=== PATIENT | female | born 2000 | race Caucasian/White ===

== ENCOUNTER 2022-06-15 02:55 | Inpatient (IN) | payer OTHER ==
[~2022-06-15] VITALS: Ht 160 cm; Wt 96.6 kg
[2022-06-15] VITALS (35 sets, daily range): BP systolic 114–151; BP diastolic 59–98
[2022-06-15] MEDS ORDERED: TERBUTALINE INJ 1 MG/ML (BRETHINE) AMP SC PRN (04:15)
[2022-06-15] MEDS ORDERED: LACTATED RINGERS 1,000 ML IV SCH (04:15)
[2022-06-15] MEDS ORDERED: MINERAL OIL 30 ML UDC TOP PRN (04:15)
[2022-06-15] MEDS ORDERED: LACTATED RINGERS 1,000 ML IV ONE (04:18)
[2022-06-15 05:04] LABS: BASOPHILS % (AUTO) 0 % (0-10); EOSINOPHILS # (AUTO) 0.1 10^3/uL (0.0-0.3); EOSINOPHILS % (AUTO) 1 % (0-10); HEMATOCRIT 36 % (35-52); LYMPHOCYTES # (AUTO) 1.9 10^3/uL (1.0-4.0); LYMPHOCYTES % (AUTO) 14 % (12-44); MEAN CORPUSCULAR HEMOGLOBIN 30 pg (25-34); MEAN CORPUSCULAR HGB CONC 33 g/dL (32-36); MEAN CORPUSCULAR VOLUME 90 fL (80-99); MEAN PLATELET VOLUME 11.1 fL (9.0-12.2); MONOCYTES % (AUTO) 7 % (0-12); NEUTROPHILS # (AUTO) 10.4 10^3/uL (1.8-7.8); NEUTROPHILS % (AUTO) 78 % (42-75); PLATELET COUNT 227 10^3/uL (130-400); WHITE BLOOD COUNT 13.4 10^3/uL (4.3-11.0)
[2022-06-15] MEDS: CATHETER FLUSH 10 ML SYR IV SCH ×2 (05:10→14:00)
[2022-06-15] MEDS: D5 LR IV SOLUTION 1,000 ML IV SCH ×2 (05:27→13:12)
--- NOTE | 2022-06-15 07:50 | History & Physical-OB ---
OB - Chief Complaint & HPI Date/Time Date of Admission: Date of Admission: Jun 15, 2022 at 04:00 Date seen by a Provider: Jun 15, 2022 Time Seen by a Provider: 08:00 Chief Complaint/History OB-Reason for Admission/Chief: Induction of Labor Hx : 1 Hx Para: 0 Hx Last Menstrual Period: 09/09/2021 Expected Date of Delivery: Jun 07, 2022 Gestational Age in Weeks: 41 Gestational Age in Days: 1 Indication for induction: post dates Admission Nurse Assessment Rev: Yes Allergies and Home Medications Allergies Coded Allergies: No Known Drug Allergies (Unverified , 06/15/22) Patient Home Medication List Home Medication List Reviewed: Yes No Active Prescriptions or Reported Meds OB - History Hx of Present Care: Yes Ultrasounds: Normal mid trimester US Obstetrical Complications: None Medical Complications: None Information Induced Hypertension: No Maternal Gestational Diabetes: No Patient Past Medical History Patient denies PMH Social History/Family History Alcohol Use: Denies Use Recreational Drug Use: No Smoking Cessation: Never smoker 2nd Hand Smoke Exposure: Yes Immunizations Influenza Vaccine Up-to-Date: No; Not Current Hepatitis A: No Hepatitis B: No Rubella: immune RPR/VDRL: Negative GBS Status: Negative HBsAG: Negative OB - Admission Exam Physical Exam Vitals: Vital Signs 06/15/22 06/15/22 04:30 07:06 Temp 37.0 Pulse 96 Resp 18 B/P (MAP) 130/75 (93) O2 Delivery Room Air HEENT: Moist Membranes Heart: Rhythm Normal Lungs: Clear Abdomen: Non tender Extremities: Normal Membranes: Intact Heart Rate: 120's Accelerations: Accelerations Present Decelerations: No Decelerations Short Term Variability: Present Cell Tester Variability: Average (6-25) Contractions on Admission: < 5 Minutes Apart Date/Time Contractions Began;: 06/14/2022 around 12:00 Frequency of Contractions: Every 4-5 minutes Duration: Last a minute Intensity: Moderate Labs Laboratory Tests Test 06/15/22 04:25 Range/Units White Blood Count 13.4 H 4.3-11.0 10^3/uL Red Blood Count 4.03 3.80-5.11 10^6/uL Hemoglobin 12.0 11.5-16.0 g/dL Hematocrit 36 35-52 % Mean Corpuscular Volume 90 80-99 fL Mean Corpuscular Hemoglobin 30 25-34 pg Mean Corpuscular Hemoglobin Concent 33 32-36 g/dL Red Cell Distribution Width 13.5 10.0-14.5 % Platelet Count 227 130-400 10^3/uL Mean Platelet Volume 11.1 9.0-12.2 fL Immature Granulocyte % (Auto) 1 % Neutrophils (%) (Auto) 78 H 42-75 % Lymphocytes (%) (Auto) 14 12-44 % Monocytes (%) (Auto) 7 0-12 % Eosinophils (%) (Auto) 1 0-10 % Basophils (%) (Auto) 0 0-10 % Neutrophils # (Auto) 10.4 H 1.8-7.8 10^3/uL Lymphocytes # (Auto) 1.9 1.0-4.0 10^3/uL Monocytes # (Auto) 1.0 0.0-1.0 10^3/uL Eosinophils # (Auto) 0.1 0.0-0.3 10^3/uL Basophils # (Auto) 0.0 0.0-0.1 10^3/uL Immature Granulocyte # (Auto) 0.1 0.0-0.1 10^3/uL OB - Assessment/Plan/Diagnosis Assessment Assessment: induction of labor Admission Dx 21yo F @ 41w1d presenting for induction of labor. Patient has not had any complications during this . Patient started feeling contractions yesterday afternoon that have gradually become more intense and closer together. She denies any vaginal blood or leaking of fluid. Plan Plan: Induction Induction Method: per Misoprostol Protocol Other Plan Patient will have cervical ripening done with misoprostol. She is zuleyma every 4-5 minute so pitocin is not needed at this time. Cervical checks will be done throughout the day to monitor progression of labor. monitoring will be done as well. Once patient is more dilated then an amniotomy will be performed. Expectant management for the rest of the day. CBC and syphillis ordered. HEATHER SEGURA Jun 15, 2022 07:50
[2022-06-15] MEDS: OXYTOCIN PRE-MIX DRIP 500 ML IV SCH ×2 (11:02→21:03)
[2022-06-15] MEDS ORDERED: ONDANSETRON 4 MG/2 ML (SDV) Z0FRAN IVP PRN (13:00)
[2022-06-15] MEDS ORDERED: ONDANSETRON 4 MG/2 ML (SDV) Z0FRAN ONE (13:03)
[2022-06-15] MEDS: fentaNYL INJ 100 MCG/2 ML AMP IVP PRN ×2 (13:05→14:54)
--- NOTE | 2022-06-15 14:56 | Labor Progress Note ---
Labor Progress Note Labor Progress Note Date Seen by Provider: Jun 15, 2022 Time Seen by Provider: 14:55 Subjective: Having more pressure and pain. Objective: / Assessment/Plan: Mckenna Reyez is a (21 /Para 1 / 0,Gestational Age (wks)41 here for active labor. CEFM/TOCO Continue pitocin augmentation Anesthesia: Natural Anticipate vaginal delivery. Vitals - Labs Vital Signs - I&O Vital Signs Date Time Temp Pulse Resp B/P (MAP) Pulse Ox O2 Delivery O2 Flow Rate FiO2 06/15/22 13:00 36.7 83 18 114/59 (77) Room Air 06/15/22 12:45 89 18 132/83 (99) Room Air 06/15/22 12:30 73 18 128/85 (99) Room Air 06/15/22 12:15 82 18 118/72 (87) Room Air 06/15/22 12:00 83 18 144/98 (113) Room Air 06/15/22 11:45 77 18 126/79 (95) Room Air 06/15/22 11:15 75 18 133/80 (97) Room Air 06/15/22 10:30 36.8 06/15/22 08:15 36.6 75 18 120/68 (85) Room Air 06/15/22 07:06 96 18 130/75 (93) Room Air 06/15/22 06:00 105 18 132/83 (99) Room Air 06/15/22 05:00 82 18 135/83 (100) Room Air 06/15/22 04:30 37.0 86 18 133/77 (95) Room Air 06/15/22 03:15 37.5 88 18 97 Room Air 06/15/22 03:15 37.5 88 18 142/81 (101) 97 Room Air I & O 06/15/22 07:00 Intake Total 1000 ml Balance 1000 ml Labs Laboratory Tests 06/15/22 04:25: White Blood Count 13.4H, Red Blood Count 4.03, Hemoglobin 12.0, Hematocrit 36, Mean Corpuscular Volume 90, Mean Corpuscular Hemoglobin 30, Mean Corpuscular Hemoglobin Concent 33, Red Cell Distribution Width 13.5, Platelet Count 227, Mean Platelet Volume 11.1, Immature Granulocyte % (Auto) 1, Neutrophils (%) (Auto) 78H, Lymphocytes (%) (Auto) 14, Monocytes (%) (Auto) 7, Eosinophils (%) (Auto) 1, Basophils (%) (Auto) 0, Neutrophils # (Auto) 10.4H, Lymphocytes # (Auto) 1.9, Monocytes # (Auto) 1.0, Eosinophils # (Auto) 0.1, Basophils # (Auto) 0.0, Immature Granulocyte # (Auto) 0.1 AMBERLY QUARLES MD Jun 15, 2022 14:56
[2022-06-15] MEDS ORDERED: LIDOCAINE 1% INJ 10 ML VIAL ONE (18:24)
[2022-06-15] MEDS ORDERED: KETOROLAC 30 MG/ML VIAL ONE (20:55)
--- NOTE | 2022-06-15 21:12 | OB Labor & Delivery Record ---
Vag Delivery Note Vag Delivery Note Date of Delivery: 06/15/22 Preoperative Diagnosis: Mckenna Reyez is a (21 /Para 1 / 0,Gestational Age (wks)41.4 here in active labor Postoperative Diagnosis: Same Surgeon: AMBERLY QUARLES MD Balloon Dipper: Mady Hernandez, MS4 Anesthesia: Natural Delivery Type: @2032 Findings: Viable Male infant, apgars 6/9, weight Lacerations: 2nd degree perineal, right labial and left mary urethral Intact placenta with 3 vessel cord. No nuchal cord, body cord or shoulder dystocia Estimated Blood Loss: 350 ml Complications: None Condition: Stable Description of Procedure: The patient is a 21 year old female who presented in active labor. She was admitted and informed consent was obtained. Her labor course was remarkable to augmentation with pitocin. She progressed to complete dilatation and began to push. She was then set up for delivery. Due to variable decels and maternal exhaustion vaccum was placed @ 2030. Patient push thru 3 pushes and the infant's head was delivered atraumatically in the FIDELINA position and there were no pop offs. The shoulders and remainder of the infant's body were then delivered without difficulty. Upon delivery, the was limp and was taken to warmer by nursery nurse. After approx 15-20 secs baby was crying and vigorous. An intact placenta with 3-vessel cord delivered via [place]el[place] and there was found to be minimal bleeding.~ Vigorous fundal massage was performed and the fundus was found to be firm. IV oxytocin was given. Examination of the vagina and perineum revealed a 2nd degree perineal, right labial and left mary urethral laceration repaired in the usual fashion with 3-0 vicryl rapide suture. Following the repair, sponge, instrument and needle counts were correct. Mom and baby were both in stable condition in the labor suite. Vitals - Labs Vital Signs - I&O Vital Signs Date Time Temp Pulse Resp B/P (MAP) Pulse Ox O2 Delivery O2 Flow Rate FiO2 06/15/22 17:30 71 18 144/91 (108) Room Air 06/15/22 17:15 55 18 134/86 (102) Room Air 06/15/22 17:00 36.8 18 133/86 (102) Room Air 06/15/22 16:45 86 18 123/71 (88) Room Air 06/15/22 16:30 80 18 140/89 (106) Room Air 06/15/22 16:15 65 18 138/86 (103) Room Air 06/15/22 16:00 71 18 126/82 (97) Room Air 06/15/22 15:45 70 18 144/97 (113) Room Air 06/15/22 15:30 62 18 137/91 (106) Room Air 06/15/22 15:15 64 18 133/87 (102) Room Air 06/15/22 15:00 36.9 62 18 136/80 (98) Room Air 06/15/22 14:45 76 18 139/87 (104) Room Air 06/15/22 14:30 75 18 129/80 (96) Room Air 06/15/22 14:15 61 18 137/87 (104) Room Air 06/15/22 14:00 73 18 138/87 (104) Room Air 06/15/22 13:50 83 18 151/89 (109) Room Air 06/15/22 13:30 77 18 137/89 (105) Room Air 06/15/22 13:15 66 18 134/84 (101) Room Air 06/15/22 13:00 36.7 83 18 114/59 (77) Room Air 06/15/22 12:45 89 18 132/83 (99) Room Air 06/15/22 12:30 73 18 128/85 (99) Room Air 06/15/22 12:15 82 18 118/72 (87) Room Air 06/15/22 12:00 83 18 144/98 (113) Room Air 06/15/22 11:45 77 18 126/79 (95) Room Air 06/15/22 11:15 75 18 133/80 (97) Room Air 06/15/22 10:30 36.8 06/15/22 08:15 36.6 75 18 120/68 (85) Room Air 06/15/22 07:06 96 18 130/75 (93) Room Air 06/15/22 06:00 105 18 132/83 (99) Room Air 06/15/22 05:00 82 18 135/83 (100) Room Air 06/15/22 04:30 37.0 86 18 133/77 (95) Room Air 2/9/23 03:15 37.5 88 18 97 Room Air 06/15/22 03:15 37.5 88 18 142/81 (101) 97 Room Air I & O 06/15/22 07:00 Intake Total 1000 ml Balance 1000 ml Labs Laboratory Tests 06/15/22 04:25: White Blood Count 13.4H, Red Blood Count 4.03, Hemoglobin 12.0, Hematocrit 36, Mean Corpuscular Volume 90, Mean Corpuscular Hemoglobin 30, Mean Corpuscular Hemoglobin Concent 33, Red Cell Distribution Width 13.5, Platelet Count 227, Mean Platelet Volume 11.1, Immature Granulocyte % (Auto) 1, Neutrophils (%) (Auto) 78H, Lymphocytes (%) (Auto) 14, Monocytes (%) (Auto) 7, Eosinophils (%) (Auto) 1, Basophils (%) (Auto) 0, Neutrophils # (Auto) 10.4H, Lymphocytes # (Auto) 1.9, Monocytes # (Auto) 1.0, Eosinophils # (Auto) 0.1, Basophils # (Auto) 0.0, Immature Granulocyte # (Auto) 0.1 AMBERLY QUARLES MD Jun 15, 2022 21:12
[2022-06-15] MEDS ORDERED: BENZOCAINE/MENTHOL (DERMOPLAST) 56 ML CAN TP PRN (21:15)
[2022-06-15] MEDS ORDERED: OXYTOCIN PRE-MIX DRIP 500 ML IV SCH (21:15)
[2022-06-15] MEDS ORDERED: MEASLES,MUMPS,RUBELLA 1 EA INJ SQ ONE (21:15)
[2022-06-15] MEDS ORDERED: TETANUS,DIPTH,PERTUSS P/F (BOOSTRIX) 0.5 ML VIAL IM ONE (21:15)
[2022-06-15] MEDS ORDERED: WITCH HAZEL(TUCKS) 40 EA JAR TOP PRN (21:15)
[2022-06-15] MEDS ORDERED: KETOROLAC 30 MG/ML VIAL IV ONE (21:30)
[2022-06-15] MEDS ORDERED: CATHETER FLUSH 10 ML SYR IV SCH (22:00)
[2022-06-16] VITALS (8 sets, daily range): BP systolic 98–118; BP diastolic 52–74
[2022-06-16 05:28] LABS: BASOPHILS % (AUTO) 0 % (0-10); EOSINOPHILS % (AUTO) 0 % (0-10); HEMATOCRIT 31 % (35-52); HEMOGLOBIN 10.4 g/dL (11.5-16.0); LYMPHOCYTES # (AUTO) 1.9 10^3/uL (1.0-4.0); LYMPHOCYTES % (AUTO) 9 % (12-44); MEAN CORPUSCULAR HEMOGLOBIN 30 pg (25-34); MEAN CORPUSCULAR HGB CONC 34 g/dL (32-36); MEAN CORPUSCULAR VOLUME 89 fL (80-99); MEAN PLATELET VOLUME 10.8 fL (9.0-12.2); MONOCYTES # (AUTO) 2.1 10^3/uL (0.0-1.0); MONOCYTES % (AUTO) 10 % (0-12); NEUTROPHILS # (AUTO) 17.2 10^3/uL (1.8-7.8); NEUTROPHILS % (AUTO) 81 % (42-75); PLATELET COUNT 233 10^3/uL (130-400); WHITE BLOOD COUNT 21.3 10^3/uL (4.3-11.0)
[2022-06-16] MEDS: ACETAMINOPHEN 500 MG TAB (TYLENOL) PO SCH ×5 (05:30→23:36)
[2022-06-16] MEDS: IBUPROFEN 600 MG (MOTRIN) TAB PO SCH ×5 (05:31→23:36)
[2022-06-16] MEDS: DOCUSATE SODIUM 100 MG (COLACE) CAP PO SCH ×2 (08:15→21:23)
[2022-06-16] MEDS: CATHETER FLUSH 10 ML SYR IV SCH (08:17)
[2022-06-16] MEDS ORDERED: FERROUS SULF 325 MG (IRON) TAB PO SCH (09:00)
--- NOTE | 2022-06-16 13:55 | Progress Note ---
Subjective Subjective/Events-last exam Doing well. Bleeding has slowed. Objective Exam Last Set of Vital Signs Vital Signs Date Time Temp Pulse Resp B/P (MAP) Pulse Ox O2 Delivery O2 Flow Rate FiO2 06/16/22 12:00 36.6 82 18 113/58 (76) 97 Room Air 06/15/22 20:25 10.00 Capillary Refill : Less Than 3 Seconds I&O Intake and Output 06/16/22 00:00 Intake Total 1000 ml Balance 1000 ml Intake IV Total 1000 ml Blood Loss Quantification Method 350 ml Daily Weight Change No General: Alert, Oriented X3, Cooperative Psych/Mental Status: Mental Status NL, Mood NL Results/Procedures Lab Laboratory Tests 06/16/22 05:18: White Blood Count 21.3H, Red Blood Count 3.48L, Hemoglobin 10.4L, Hematocrit 31L , Mean Corpuscular Volume 89, Mean Corpuscular Hemoglobin 30, Mean Corpuscular Hemoglobin Concent 34, Red Cell Distribution Width 13.8, Platelet Count 233, Mean Platelet Volume 10.8, Immature Granulocyte % (Auto) 1, Neutrophils (%) (Auto) 81H, Lymphocytes (%) (Auto) 9L, Monocytes (%) (Auto) 10, Eosinophils (%) (Auto) 0, Basophils (%) (Auto) 0, Neutrophils # (Auto) 17.2H, Lymphocytes # (Auto) 1.9, Monocytes # (Auto) 2.1H, Eosinophils # (Auto) 0.0, Basophils # (Auto) 0.0, Immature Granulocyte # (Auto) 0.1 Assessment/Plan Assessment/Plan Assessment & Plan G1 s/p VAVD at 41w1d following IOL 2nd degree, R labial, L periurethal laceration repair -routine care MILLICENT CHOI DO Jun 16, 2022 13:55
--- NOTE | 2022-06-16 22:23 | Discharge Summary ---
Diagnosis/Chief Complaint Date of Admission Jun 15, 2022 at 04:00 Date of Discharge 06/16/22 Discharge Summary-Simple/Stand Discharge Physical Examination Allergies: Coded Allergies: No Known Drug Allergies (Unverified , 06/15/22) Vitals & I&Os Vital Sign - Last 12Hours Date Time Temp Pulse Resp B/P (MAP) Pulse Ox O2 Delivery O2 Flow Rate FiO2 06/16/22 16:00 36.6 78 18 116/60 (78) 98 Room Air 06/15/22 20:25 10.00 Hospital Course See final discharge diagnosis. Discharge Instructions to patient/family Please see electronic discharge instructions given to patient. Discharge Medications Reviewed and agree with Discharge Medication list on patient's Discharge Instruction sheet AMBERLY QUARLES MD Jun 16, 2022 22:23
--- NOTE | 2022-06-16 22:26 | Discharge Summary ---
Discharge Inst-[facility] Follow Up/Instructions Goal/Follow Up: 6 weeks with [facility] Activity Activity: Activity as Tolerated Diet Discharge Diet: No Restrictions Symptoms to Report to DrFatou: Bleeding Excessive, Fever Over 101 Degrees F Skin/Wound Care Infection Signs and Symptoms: Increased Redness, Foul Odor of Wound AMBERLY QUARLES MD Jun 16, 2022 22:26
== END 2022-06-16 23:40 | disposition home or self-care (01) | DRG 807 ==
LOC: WSo 02:55 → LDRP 02:57 → WSo 03:59 → LDRP 04:00
PROVIDERS: ADMIT Family Medicine; ATTEND Family Medicine
PROC: 10E0XZZ Delivery of Products of Conception, External Approach (ICD-10-PCS; principal; 2022-06-15)
PROC: 0KQM0ZZ Repair Perineum Muscle, Open Approach (ICD-10-PCS; 2022-06-15)
PROC: 0UQMXZZ Repair Vulva, External Approach (ICD-10-PCS; 2022-06-15)
DX: O48.0 Post-term pregnancy (principal); Z37.0 Single live birth; Z3A.41 41 weeks gestation of pregnancy; O70.1 Second degree perineal laceration during delivery; O71.82 Other specified trauma to perineum and vulva
CPT/HCPCS: 36415; 85025; 86780; 86850; 86900; 86901; 99212